=== PATIENT | female | born 1985 | race African-American/Black ===

== ENCOUNTER 2017-10-26 22:14 | Emergency (ER) | payer MEDICAID, OTHER ==
[~2017-10-26] VITALS: Ht 175.3 cm; Wt 74.8 kg
[~2017-10-26 22:14] MED LIST: ANUSOL-HC25 MG RECTAL; CILOXAN 0.3% O1 DROP RIGHT EYE; IBUPROFEN600 MG ORAL; LACTULOSE20 GM/301 ORAL; NKM
[2017-10-26 22:45] VITALS: BP 109/75
[2017-10-26] MEDS ORDERED: AMOXICILLIN500 MG ORAL (22:59)
[2017-10-26] MEDS ORDERED: IBUPROFEN600 MG ORAL (22:59)
--- NOTE | 2017-10-26 22:59 | Emergency Room Report ---
History of Present Illness General Chief Complaint: Earache Source: Patient Present Illness [facility] This is a 31-year-old female with no past medical history. She presents with chief left ear pain. Onset for last day. The last week or so she had a runny nose and congestion. Also with sore throat. No nausea no vomiting. No fever or chills. Pain is 9/10. No trauma. Allergies: Coded Allergies: No Known Allergies (Unverified , 12/31/13) Patient History Past Medical History: see triage record, old chart reviewed Past Surgical History: none Social History: Denies: smoking Last Menstrual Period: 10/25/17 Now: No : 1 Para: 0 Immunizations: other Reviewed Nursing Documentation: PMH: Agreed, PSxH: Agreed Nursing Documentation-PMH Hx Cardiac Problems: No - hemorrhoids Review of Systems Eye: Denies: eye pain, blurred vision ENT: Reports: ear pain, Denies: nose congestion, throat swelling Respiratory: Denies: cough, shortness of breath Cardiovascular: Denies: chest pain, palpitations Gastrointestinal: Denies: abdominal pain, diarrhea, nausea, vomiting Musculoskeletal: Denies: back pain, joint pain Skin: Denies: rash Neurological: Denies: headache, numbness Endocrine: Denies: increased thirst, increased urine Hematologic/Lymphatic: Denies: easy bruising All Other Systems: negative except mentioned in HPI Physical Exam Vital Signs Date Time Temp Pulse Resp B/P (MAP) Pulse Ox O2 Delivery O2 Flow Rate FiO2 10/26/17 22:27 98.8 74 15 109/75 100 Room Air vitals normal Sp02 EP Interpretation: reviewed, normal General Appearance: well appearing, no apparent distress, alert Head: normocephalic, atraumatic Eyes: bilateral eye PERRL, bilateral eye EOMI ENT: hearing grossly normal, tonsillar swelling, pharyngeal erythema, tonsillar exudate, other - Left TM is erythematous and bulging. Neck: full range of motion, supple, no meningismus Respiratory: chest non-tender, lungs clear, normal breath sounds Cardiovascular #1: regular rate, rhythm, no murmur Gastrointestinal: normal bowel sounds, non tender, no mass, no organomegaly, no bruit, non-distended Musculoskeletal: back normal, gait/station normal, normal range of motion Psychiatric: mood/affect normal Skin: warm/dry Medical Decision Making Diagnostic Impression: Primary Impression: Otitis media, left Qualified Codes: H65.192 - Other acute nonsuppurative otitis media, left ear ER Course Patient with a viral illness complicated by left otitis media. No perforation. No mastoiditis or meningitis. We'll discharge home. Last Vital Signs Date Time Temp Pulse Resp B/P (MAP) Pulse Ox O2 Delivery O2 Flow Rate FiO2 10/26/17 22:27 98.8 74 15 109/75 100 Room Air Status: unchanged Disposition: HOME, SELF-CARE Condition: Stable Scripts Ibuprofen* (MOTRIN*) 600 Mg Tablet 600 MG ORAL Q8H Y for For Pain, #30 TAB 0 Refills Prov: MICHAEL NGUYEN M.D. 10/26/17 Amoxicillin* (AMOXIL*) 500 Mg Capsule 500 MG ORAL THREE TIMES A DAY, #21 CAP Prov: MICHAEL NGUYEN M.D. 10/26/17 Patient Instructions: Otitis Media, Adult, [id number] Additional Instructions: Followup with your DrSandra in 7 days. Return if symptom worsen. MICHAEL NGUYEN M.D. Oct 26, 2017 22:59
[2017-10-26 23:15] VITALS: BP 109/75
== END 2017-10-26 23:15 | disposition home or self-care (01) ==
LOC: EMR 22:35
DX: H65.192 Other acute nonsuppurative otitis media, left ear (principal)
CPT/HCPCS: 99284

== ENCOUNTER 2017-12-09 14:50 | Emergency (ER) | payer MEDICAID, OTHER ==
[~2017-12-09] VITALS: Ht 175.3 cm; Wt 73.9 kg
[~2017-12-09 14:50] MED LIST changes: +AMOXICILLIN500 MG ORAL
[2017-12-09 14:54] VITALS: BP 96/59
[2017-12-09] MEDS ORDERED: Tetanus/Diptheria/Pertussis Vaccine 0.5ml Syr IM ONE (15:15)
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
[2017-12-09] MEDS ORDERED: SILVER SULFADIA50 GM TP (15:35)
[2017-12-09] MEDS ORDERED: IBUPROFEN600 MG ORAL (15:35)
[2017-12-09 15:59] VITALS: BP 96/59
== END 2017-12-09 15:59 | disposition home or self-care (01) ==
LOC: EMR 15:40
DX: T22.211A Burn of second degree of right forearm, initial encounter (principal); T22.221A Burn of second degree of right elbow, initial encounter; T23.271A Burn of second degree of right wrist, initial encounter; X10.2XXA Contact with fats and cooking oils, initial encounter; Y92.511 Restaurant or cafe as the place of occurrence of the external cause; Y99.0 Civilian activity done for income or pay; Z23 Encounter for immunization
CPT/HCPCS: 90471; 90715; 99283

== ENCOUNTER 2017-12-14 10:19 | Emergency (ER) | payer MEDICAID, OTHER ==
[~2017-12-14] VITALS: Ht 175.3 cm; Wt 74.8 kg
[~2017-12-14 10:19] MED LIST changes: +SILVER SULFADIA50 GM TP
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
[2017-12-14] MEDS ORDERED: Norco 5mg/325mg tab ORAL ONE (11:15)
[2017-12-14] MEDS ORDERED: ACETAMINOPHEN-1 EAC1 ORAL (11:17)
[2017-12-14] MEDS ORDERED: IBUPROFEN600 MG ORAL (11:17)
[2017-12-14 11:25] VITALS: BP 99/67
== END 2017-12-14 11:25 | disposition home or self-care (01) ==
LOC: EMR 10:55
DX: T22.211D Burn of second degree of right forearm, subsequent encounter (principal); T31.55 Burns involving 50-59% of body surface with 50-59% third degree burns; X08.8XXD Exposure to other specified smoke, fire and flames, subsequent encounter; Z48.00 Encounter for change or removal of nonsurgical wound dressing
CPT/HCPCS: 99283